=== PATIENT | male | born 1975 | race Caucasian/White ===

== ENCOUNTER 2025-07-17 04:49 | Emergency (ER) | payer BC, SELFPAY ==
[2025-07-17 05:27] VITALS: BP 113/77; PULSE 66; RESP 20; TEMP 36.7; O2SAT 96
--- NOTE | 2025-07-17 06:01 | ED.GENADULT ---
HPI - General Adult General Chief complaint: Back Pain/Injury Stated complaint: left lower back pain Time Seen by Provider: 07/17/25 05:44 History of Present Illness HPI narrative: 50-year-old male presenting with left lower back pain. Patient was moving cinder blocks at work on Friday. On Friday he developed pain in the left lower back that radiates into his glute. It is a burning sensation. Is worse with movement. It is better with laying flat. He denies trauma, urinary retention, bowel incontinence, saddle anesthesia, cancer IV drug abuse or fevers. He has not take anything for pain control. Patient has a history of L4-L5 S1 fusion in 2006 and has had intermittent back pain since then. Related Data Allergies Allergy/AdvReac Type Severity Reaction Status Date / Time No Known Allergies Allergy Verified 07/17/25 04:55 Exam Narrative: APPEARANCE: No apparent distress. Head: atraumatic. EYES: EOMI, NOSE: Atraumatic NECK/back: Trachea midline, no midline tenderness RESPIRATORY: No increased rate of breathing, CTAB CARDIOVASCULAR: RRR, ABDOMINAL: Non-distended soft nontender, no guarding rebound, no CVA tenderness MUSCULOSKELETAl: Straight leg negative bilaterally, no pain on passive raising of the leg, severe pain active raising of the leg NEURO: Alert. sensation intact bilaterally SKIN:: Warm, dry. Normal color PSYCHIATRIC: Normal affect Course Vital Signs Vital signs: Vital Signs Temperature 98.0 F 07/17/25 05:27 Pulse Rate 66 07/17/25 05:27 Respiratory Rate 20 07/17/25 05:27 Blood Pressure 113/77 07/17/25 05:27 Pulse Oximetry 96 07/17/25 05:27 Oxygen Delivery Room Air 07/17/25 05:27 Temperature 98.0 F 07/17/25 05:27 Pulse Rate 66 07/17/25 05:27 Respiratory Rate 20 07/17/25 05:27 Blood Pressure 113/77 07/17/25 05:27 Pulse Oximetry 96 07/17/25 05:27 Oxygen Delivery Room Air 07/17/25 05:27 Medical Decision Making [facility] Narrative Medical decision making narrative: -Course: 50-year-old male with history of lumbar fusion presenting with back pain that is worse with movement after moving cinder blocks at work. On physical exam he has no pain with straight leg raise but severe pain with active racing of the leg. This is consistent with a lower back strain. No red flags on history or physical. Patient treated with muscle relaxers NSAIDs lidocaine patch. He will be discharged with appropriate prescriptions and given primary care follow-up. -DDX includes but is not limited to: Muscle strain, sciatica, spinal cord compression -Co-morbidities complicating care: lumbar fusion Vital Signs Vital Signs: Vital Signs Temperature 98.0 F 07/17/25 05:27 Pulse Rate 66 07/17/25 05:27 Respiratory Rate 20 07/17/25 05:27 Blood Pressure 113/77 07/17/25 05:27 Pulse Oximetry 96 07/17/25 05:27 Oxygen Delivery Room Air 07/17/25 05:27 Temperature 98.0 F 07/17/25 05:27 Pulse Rate 66 07/17/25 05:27 Respiratory Rate 20 07/17/25 05:27 Blood Pressure 113/77 07/17/25 05:27 Pulse Oximetry 96 07/17/25 05:27 Oxygen Delivery Room Air 07/17/25 05:27 Discharge Plan Discharge Clinical Impression: Strain of lumbar region Patient Disposition: Home Condition: Stable Instructions: Antibiotic Form, Acute Low Back Pain (ED) Additional Instructions: please take the medications as prescribed. Please follow-up with your primary care physician in 3-5 days. If you develop inability to urinate, bowel incontinence or weakness your legs please return to the ED. If you develop severe uncontrollable pain return to the ED. Patient Language: [place] Prescriptions: New acetaminophen 500 mg tablet 1,000 mg PO TID PRN (Reason: raji) 7 Days Qty: 42 0RF ibuprofen 800 mg tablet 800 mg PO TID PRN (Reason: pain) 7 Days Qty: 21 0RF methocarbamol 750 mg tablet 1,500 mg PO TID Qty: 42 0RF lidocaine 5 % adhesive patch,medicated 1 patch topical DAILY Qty: 15 0RF Rx Instructions: leave on most painful area for up to 12 hrs Follow-up/Referrals: Jose Cruz,MD Kavitha [Primary Care Provider, Family Practice] - 1 Week Clinical Impression: Strain of lumbar region
[2025-07-17] MEDS: KETOROLAC 30 MG/ML VIAL (*BKC) IM (06:38)
[2025-07-17] MEDS: ACETAMINOPHEN 500 MG TABLET 1000 MG PO (06:38)
[2025-07-17] MEDS: LIDOCAINE 5% PATCH 1 PATCH TRANSDERM (06:39)
[2025-07-17] MEDS: diazePAM INJ (*CRX) 10 MG/2 ML SYRINGE 5 MG IM (06:39)
== END 2025-07-17 06:55 | disposition home or self-care (01) ==
LOC: ANHED 06:12
PROVIDERS: Emergency Provider Emergency Medicine; PCP Family Medicine
DX: S39.012A Strain of muscle, fascia and tendon of lower back, initial encounter (principal); X50.0XXA Overexertion from strenuous movement or load, initial encounter
CPT/HCPCS: 96372; 99284; A9270; J1885; J3360